=== PATIENT | female | born 1985 | race Caucasian/White ===

== ENCOUNTER 2018-09-03 17:49 | Emergency (ER) | payer SELFPAY ==
[~2018-09-03] VITALS: Ht 162.6 cm; Wt 65.9 kg
[2018-09-03] MEDS ORDERED: ACETAMINOPHEN 500 MG TABLET PO ONE (18:00)
--- NOTE | 2018-09-03 18:00 | NUR ---
PT PRESENTS TO ED WITH C/O LEFT SIDED FLANK PAIN FOR ROUGHLY 1 WEEK. STATES WORSE SINCE YESTERDAY. PT WAS SEEN AT [facility] TODAY. SENT HERE DUE TO HEART RATE IN THE 140'S AND BP OF 85/41. PT STATES URINE SAMPLE DONE THERE, WHICH SHE WAS TOLD WAS NEGATIVE. MILD AMOUNT OF DISTRESS WITH MODERATE DISCOMFORT NOTED. PT SEEN IN PIT. LAB AT BEDSIDE. AWAITING FURTHER EVAL AT THIS TIME.
[2018-09-03] MEDS ORDERED: ACETAMINOPHEN 500 MG TABLET ONE (18:15)
--- NOTE | 2018-09-03 18:15 | NUR ---
BREAK RN: PT UPRIGHT ON GURNEY AWAKE & COMFORTABLE, RESPONDS APPROP TO STAFF, NAD, COMFORT MEASURES PROVIDED, SO AT BS, CALL LIGHT WITHIN REACH.
[2018-09-03 18:27] LABS: MEAN CORPUSCULAR HEMOGLOBIN 31.8 pg (27.0-34.8); MEAN CORPUSCULAR VOLUME 90.9 fL (80-100); PLATELET COUNT 274 x10^3/uL (130-400); RED CELL DISTRIBUTION WIDTH 14.2 % (9.6-15.2)
[2018-09-03] MEDS ORDERED: SODIUM CHLORIDE FLUSH 10ML SYR IVF ONE (18:30)
[2018-09-03] MEDS ORDERED: HYDROmorphone 2 MG/ML, 1ML IVPush PRN (18:30)
[2018-09-03] MEDS ORDERED: ONDANSETRON 2MG/ML, 2ML IVPush ONE (18:30)
[2018-09-03 18:39] LABS: ALANINE AMINOTRANSFERASE 31 U/L (12-78); ALBUMIN 4.1 g/dL (3.4-5.0); ANION GAP 7 mmol/L (5-15); CALCIUM 8.6 mg/dL (8.5-10.1); CHLORIDE 107 mmol/L (98-107); CREATININE 0.75 mg/dL (0.55-1.02)
[2018-09-03 18:41] LABS: ALKALINE PHOSPHATASE 66 U/L (45-117); BILIRUBIN,TOTAL 0.6 mg/dL (0.2-1.0)
[2018-09-03] MEDS ORDERED: MORPHINE SULFATE 4 MG/ML, 1ML ONE (18:41)
[2018-09-03] MEDS ORDERED: ONDANSETRON 2MG/ML, 2ML ONE (18:41)
[2018-09-03] MEDS ORDERED: HYDROmorphone 1 MG/ML, 1ML ONE (18:46)
--- NOTE | 2018-09-03 18:58 | NUR ---
Alee wong in [facility] - 09/03/18 at 1859 by BRIDGER PT GIVEN DC PAPERWORK. PT VERBALIZED UNDERSTANDING.
--- NOTE | 2018-09-03 19:30 | NUR ---
PT GIVEN PO FLUIDS. PT UNABLE TO URINATE AT THIS TIME.
[2018-09-03 19:34] LABS: BASOPHILS # (AUTO) 0.04 x10^3/uL (0-0.1); BASOPHILS % (AUTO) 0 % (0-1); EOSINOPHILS % (AUTO) 0 % (1-7); LYMPHOCYTES # (AUTO) 1.01 x10^3/uL (1-3.4); LYMPHOCYTES % (AUTO) 6 % (22-44); MONOCYTES % (AUTO) 11 % (2-9); NEUTROPHILS # (AUTO) 14.28 x10^3/uL (1.8-6.8); NEUTROPHILS % (AUTO) 83 % (42-75)
[2018-09-03 19:35] LABS: MD SCAN
--- NOTE | 2018-09-03 20:17 | NUR ---
PT CONTINUES TO BE UNABLE TO URINATE AT THIS TIME. PT ABLE TO TOLERATE WATER.
--- NOTE | 2018-09-03 20:40 | NUR ---
PT AMBULATED TO RESTROOM WITH STEADY GAIT. URINE SAMPLE COLLECTED AND SENT TO LAB
[2018-09-03 21:10] LABS: HCG UR SG 1.025 (1.003-1.030); MICROSCOPIC AUTO
[2018-09-03 21:12] LABS: CULTURE INDICATED? YES
--- NOTE | 2018-09-03 21:40 | NUR ---
ERMD AT BEDSIDE TO UPDATE POC.
[2018-09-03] MEDS ORDERED: CIPROFLOXACIN/PMX 400MG/200ML 200 ML ONE (21:58)
[2018-09-03] MEDS ORDERED: CIPROFLOXACIN/PMX 400MG/200ML 100 ML IVPB ONE (22:00)
--- NOTE | 2018-09-03 22:04 | NUR ---
IV ANTIBIOTICS STARTED PER OCT. RIGHTS VERIFIED PRIOR. NO BC PER ERMD. POC DISCUSSED WITH PT. PT TO BE DC.
[2018-09-03 22:09] VITALS: BP 95/55
--- NOTE | 2018-09-03 22:09 | NUR ---
REPORT TO [facility].
== END 2018-09-03 22:40 | disposition home or self-care (01) ==
LOC: ED 22:34
DX: N10 Acute pyelonephritis (principal)
CPT/HCPCS: 36415; 80053; 81001; 81025; 83605; 84145; 85025; 87040; 87077; 87086; 87186; 96365; 96375; 99283; J0744; J1170; J2405